=== PATIENT | female | born 1935 | race Two or more races ===

== ENCOUNTER 2016-11-10 12:39 | Inpatient (IN) | payer MEDICARE ==
[~2016-11-10] VITALS: Ht 144.8 cm; Wt 42.6 kg
[2016-11-10 16:00] VITALS: BP 138/70
[2016-11-10] MEDS ORDERED: CALC500T52 PO (16:11)
[2016-11-10] MEDS ORDERED: VENL37.55 PO (16:11)
[2016-11-10] MEDS ORDERED: ALPR0.25 PO (16:11)
[2016-11-10] MEDS ORDERED: CARB-92 PO (16:11)
[2016-11-10] MEDS ORDERED: ERGO50003 PO (16:11)
[2016-11-10] MEDS ORDERED: MEMA10TA PO (16:11)
[2016-11-10] MEDS ORDERED: QUET25TA PO (16:11)
[2016-11-10] MEDS ORDERED: IBUP-1619 PO (16:11)
[2016-11-10] MEDS ORDERED: TEMA15CA PO (16:11)
--- NOTE | 2016-11-10 16:15 | NUR ---
MS RN NOTES RECEIVED REPORT FROM NARGIS FROM [facility]. PATIENT ARRIVED IN STABLE CONDITION. PATIENT IS A/OX1. PATIENT NO S/S OF DISTRESS NOTED. IV IS PATENT AND INTACT 20G ON R AC. PATIENT ARRIVED TO UNIT FOR ASPIRATION PNEUMONIA. MD AWARE. MEDS HAVE BEEN RECONCILED. WILL CONTINUE TO MONITOR PATIENT THROUGHOUT SHIFT.
[2016-11-10] MEDS ORDERED: ALPRAZOLAM 0.25 MG TABLET PO PRN (17:00)
[2016-11-10] MEDS ORDERED: ENOXAPARIN SODIUM 40 MG/0.4 ML DISP.SYRIN SQ SCH (17:00)
[2016-11-10] MEDS ORDERED: Z GUARD REMEDY 2 OZ OINT TP PRN (17:00)
[2016-11-10] MEDS ORDERED: ONDANSETRON HCL/PF 4 MG/2 ML VIAL IVP PRN (17:00)
[2016-11-10] MEDS ORDERED: IV SET PRIMARY PUMP SET 1 EA INFUS.SET MC ONE (17:30)
[2016-11-10] MEDS ORDERED: SECONDARY IV SET 1 EA INFUS.SET MC ONE ×2 (17:30→20:26)
[2016-11-10] MEDS: IV NS 0.9% 1,000 ML IV PRN (17:43)
[2016-11-10] MEDS: CALCIUM CARBONATE (1250) 500 MG TABLET PO SCH (17:44)
[2016-11-10] MEDS: CARBIDOPA/LEVODOPA 10/100 MG 1 UDTAB PO SCH (17:44)
[2016-11-10] MEDS: QUETIAPINE FUMARATE 25 MG TABLET PO SCH (17:44)
--- NOTE | 2016-11-10 17:45 | NUR ---
MS RN NOTES CALLED PHARMACY TO ASK FOR ROCEPHIN. ROCEPHIN WAS NOT AVAILABLE IN MED ROOM.
--- NOTE | 2016-11-10 19:15 | NUR ---
MS RN NOTES CALLED PHARMACY TO ASK FOR ROCEPHIN AGAIN. PHARMACY STATED IT WILL BE SENT UP.
[2016-11-10 20:00] VITALS: BP 120/68
[2016-11-10] MEDS ORDERED: FEE PK DOSING 1 MIN EA MC ONE (20:23)
[2016-11-10] MEDS: CEFTRIAXONE 1 G in IV D5W 50 ML IV SCH (20:32)
[2016-11-10] MEDS: IBUPROFEN 200 MG TABLET PO SCH (21:11)
[2016-11-10] MEDS: ENOXAPARIN SODIUM 30 MG/0.3 ML DISP.SYRIN SQ SCH (21:14)
[2016-11-10] MEDS: TEMAZEPAM 15 MG CAPSULE PO SCH (21:14)
[2016-11-10] MEDS ORDERED: VANCOMYCIN 0.75 GM in IV D5W 250 ML IV SCH (22:00)
[2016-11-10] MEDS: VENLAFAXINE XR 37.5 MG CAP.SR.24H PO SCH (22:10)
[2016-11-11] VITALS: BP 105/50
[2016-11-11 04:26] VITALS: BP 110/57
--- NOTE | 2016-11-11 06:26 | NUR ---
MS RN CLOSING NOTES PATIENT IN BED. AWAKE. PATIENT IS A/OX1. CONFUSED. NO SOB. RESPIRATION EVEN AND UNLABORED. NO ACUTE DISTRESS NOTED. IV IS PATENT AND INTACT 22G ON R AC . NO COMPLAIN OF PAIN AT THIS TIME. KEPT CLEAN AND DRY AT ALL TIMES. BED IN LOW AND LOCKED POSITION. SIDERAILS UPX2. CALL LIGHT WITHIN REACH. WILL ENDORSE TO NEXT SHIFT NURSE FOR PADDY.
[2016-11-11 07:25] LABS: BASOPHILS % (AUTO) 0.4 % (0.0-2.0); EOSINOPHILS # (AUTO) 0.1 /CMM (0.0-0.7); EOSINOPHILS % (AUTO) 1.5 % (0.0-6.0); HEMATOCRIT 30 % (33-45); HEMOGLOBIN 10.1 g/dL (11.5-14.8); LYMPHOCYTES # (AUTO) 1.7 /CMM (0.8-4.8); LYMPHOCYTES % (AUTO) 19.5 % (20.0-44.0); MEAN CORPUSCULAR HEMOGLOBIN 29 PG (26.0-33.0); MEAN CORPUSCULAR HGB CONC 34 g/dl (31.0-36.0); MEAN CORPUSCULAR VOLUME 88 fL (82-100); MONOCYTES # (AUTO) 0.4 /CMM (0.1-1.30); MONOCYTES % (AUTO) 4.2 % (2.0-12.0); NEUTROPHILS # (AUTO) 6.6 /CMM (1.8-8.9); NEUTROPHILS % (AUTO) 74.4 % (43.0-81.0); PLATELET COUNT (AUTO) 300 /CMM (150-450); RDW COEFFICIENT OF VARIATION 15.4 (11.5-15.0); RED BLOOD CELL COUNT(AUTO) 3.44 MIL/uL (4.0-5.2); WHITE BLOOD COUNT (AUTO) 8.9 K/uL (4.3-11.0)
[2016-11-11 08:00] VITALS: BP 110/68
--- NOTE | 2016-11-11 08:00 | NUR ---
RN OPENING NOTES PATIENT RESTING IN BED, AWAKE. PATIENT CONFUSED, ORIENTED TO NAME AND PLACE ONLY. PATIENT SOFT RESTRAINT WAS NOT USED BECAUSE PATIENT WAS COOPERATIVE AND CALM. RESPIRATIONS EVEN AND UNLABORED. NO ACUTE DISTRESS NOTED. IV SITE PATENT AND INTACT. NO COMPLAINS OF PAIN. BED IN LOWEST POSITION, SEMIFOWLERS. CALL LIGHT WITHIN REACH. WILL CONTINUE TO MONITOR.
[2016-11-11 08:05] LABS: ALANINE AMINOTRANSFERASE 15 U/L (12-78); ALBUMIN 2.3 g/dL (3.4-5.0); ALKALINE PHOSPHATASE 69 U/L (46-116); ASPARTATE AMINOTRANSFERASE 23 U/L (15-37); CALCIUM, SERUM 8.3 mg/dL (8.5-10.1); CARBON DIOXIDE 28 mmol/L (21-32); CHLORIDE 108 mmol/L (98-107); CREATININE 0.6 mg/dL (0.6-1.3); GLUCOSE 83 mg/dL (74-106); MAGNESIUM 1.7 mg/dL (1.8-2.4); PHOSPHORUS 2.8 mg/dL (2.5-4.9); POTASSIUM 3.7 mmol/L (3.5-5.1); SODIUM SERUM 142 mmol/L (136-145); TOTAL PROTEIN, SERUM 6.7 g/dL (6.4-8.2); UREA NITROGEN, BLOOD 8 mg/dL (7-18)
[2016-11-11 08:06] LABS: CHOLESTEROL 168 mg/dL (<200); HDL CHOLESTEROL 37 mg/dL (40-60); LDL 108 mg/dL (0-99); THYROID STIMULATING HORMONE 2.393 uIU/mL (0.358-3.74); TRIGLYCERIDES 73 mg/dL (30-150)
[2016-11-11] MEDS: QUETIAPINE FUMARATE 25 MG TABLET PO SCH ×2 (08:36→17:15)
[2016-11-11] MEDS: CALCIUM CARBONATE (1250) 500 MG TABLET PO SCH ×2 (08:37→17:15)
[2016-11-11] MEDS: CARBIDOPA/LEVODOPA 10/100 MG 1 UDTAB PO SCH ×3 (08:37→17:15)
[2016-11-11] MEDS: PANTOPRAZOLE 40 MG TABLET.DR PO SCH (08:38)
[2016-11-11] MEDS: MEMANTINE HCL 5 MG TABLET PO SCH (08:39)
[2016-11-11] MEDS: IBUPROFEN 200 MG TABLET PO SCH ×2 (09:41→21:01)
[2016-11-11 10:30] LABS: BILIRUBIN,TOTAL 0.3 mg/dL (0.2-1.0)
[2016-11-11] MEDS ORDERED: SECONDARY IV SET 1 EA INFUS.SET MC ONE ×2 (14:00→17:10)
[2016-11-11] MEDS: IV NS 0.9% 1,000 ML IV PRN (14:09)
[2016-11-11] MEDS: Magnesium 1GM/D5W 100ML PREMIX 100 ML IV SCH ×2 (14:10→16:07)
[2016-11-11] MEDS ORDERED: IV SET PRIMARY PUMP SET 1 EA INFUS.SET MC ONE (14:13)
--- NOTE | 2016-11-11 15:16 | NUR ---
PT REFUSED CT SCAN & CXR, RN IS AWARE.
[2016-11-11 16:00] VITALS: BP 97/47
--- NOTE | 2016-11-11 17:00 | NUR ---
PATIENT WENT TO CT SCAN, PATIENT WAS COOPERATIVE.
--- NOTE | 2016-11-11 17:06 | NUR ---
PATIENT CAME BACK FROM CT SCAN, TOLERATED WELL.
[2016-11-11] MEDS: VANCOMYCIN 0.75 GM in IV D5W 250 ML IV SCH (17:13)
[2016-11-11] MEDS: CEFTRIAXONE 1 G in IV D5W 50 ML IV SCH (18:19)
--- NOTE | 2016-11-11 19:00 | NUR ---
RN CLOSING NOTES PATIENT ON BED RESTING, COOPERATIVE AND CALM. NO ACUTE DISTRESS NOTED. ALL NEEDS ATTENDED AND PROVIDED. BED IN LOWEST POSITION. CALL LIGHT WITH IN REACH. ENDORSED TO COMPLIANCE ASSISTANT RN FOR CONTINUITY OF CARE.
[2016-11-11 20:00] VITALS: BP 101/48
--- NOTE | 2016-11-11 20:10 | NUR ---
RN OPENING NOTES PATIENT RESTING IN BED, AWAKE. RESPIRATION EVEN AND UNLABORED. NO SOB. NO COMPLAIN OF PAIN/DISCOMFORT AT THIS TIME. NO ACUTE DISTRESS NOTED. IV SITE PATENT AND INTACT. BED IN LOW AND LOCKED POSITION. SIDERAILS UPX2. CALL LIGHT WITHIN REACH. WILL CONTINUE TO MONITOR FOR SAFETY.
[2016-11-11 20:13] VITALS: BP 101/48
[2016-11-11] MEDS: ENOXAPARIN SODIUM 30 MG/0.3 ML DISP.SYRIN SQ SCH (21:01)
[2016-11-11] MEDS: VENLAFAXINE XR 37.5 MG CAP.SR.24H PO SCH (21:01)
[2016-11-11] MEDS: TEMAZEPAM 15 MG CAPSULE PO SCH (21:01)
[2016-11-12] MEDS: IV NS 0.9% 1,000 ML IV PRN (05:53)
--- NOTE | 2016-11-12 07:30 | NUR ---
MS RN OPENING NOTES RECEIVED PT. FROM NIGHTSHIFT NURSE IN STABLE CONDITION. PT. IS A/O X1 AND CONFUSED. NO SOB OR SIGNS OF DISTRESS NOTED. BREATHING IS EVEN AND UNLABORED. IV PRESENT ON RIGHT AC 22G PATENT AND INTACT INFUSING NS @75ML/HR. PT. TOLERATING INFUSION WELL. NO REDNESS OR SIGNS OF INFILTRATION NOTED. BED IN LOW LOCKED POSITION, SIDE RAILS UP X3, CALL LIGHT WITHIN REACH. BED ALARM ON. WILL CONTINUE TO MONITOR.
[2016-11-12 08:00] VITALS: BP_SYST 127; BP_SYST 150; BP_DIAS 72; BP_DIAS 80
[2016-11-12] MEDS: CARBIDOPA/LEVODOPA 10/100 MG 1 UDTAB PO SCH ×3 (08:23→17:54)
[2016-11-12] MEDS: MEMANTINE HCL 5 MG TABLET PO SCH (08:23)
[2016-11-12] MEDS: QUETIAPINE FUMARATE 25 MG TABLET PO SCH ×2 (08:24→17:54)
[2016-11-12] MEDS: IBUPROFEN 200 MG TABLET PO SCH ×2 (08:24→21:00)
[2016-11-12] MEDS: CALCIUM CARBONATE (1250) 500 MG TABLET PO SCH ×2 (08:24→17:54)
[2016-11-12] MEDS: PANTOPRAZOLE 40 MG TABLET.DR PO SCH (08:24)
[2016-11-12 09:07] LABS: BASOPHILS % (AUTO) 0.3 % (0.0-2.0); EOSINOPHILS # (AUTO) 0.3 /CMM (0.0-0.7); EOSINOPHILS % (AUTO) 3.3 % (0.0-6.0); HEMATOCRIT 32 % (33-45); HEMOGLOBIN 10.5 g/dL (11.5-14.8); LYMPHOCYTES # (AUTO) 1.9 /CMM (0.8-4.8); LYMPHOCYTES % (AUTO) 19.6 % (20.0-44.0); MEAN CORPUSCULAR HEMOGLOBIN 29 PG (26.0-33.0); MEAN CORPUSCULAR HGB CONC 33 g/dl (31.0-36.0); MEAN CORPUSCULAR VOLUME 88 fL (82-100); MONOCYTES # (AUTO) 0.4 /CMM (0.1-1.30); MONOCYTES % (AUTO) 4.2 % (2.0-12.0); NEUTROPHILS % (AUTO) 72.6 % (43.0-81.0); PLATELET COUNT (AUTO) 329 /CMM (150-450); RDW COEFFICIENT OF VARIATION 15.8 (11.5-15.0); RED BLOOD CELL COUNT(AUTO) 3.64 MIL/uL (4.0-5.2); WHITE BLOOD COUNT (AUTO) 9.6 K/uL (4.3-11.0)
[2016-11-12 09:21] LABS: CALCIUM, SERUM 8.2 mg/dL (8.5-10.1); CARBON DIOXIDE 25 mmol/L (21-32); CHLORIDE 105 mmol/L (98-107); CREATININE 0.7 mg/dL (0.6-1.3); GLUCOSE 132 mg/dL (74-106); PHOSPHORUS 2.5 mg/dL (2.5-4.9); POTASSIUM 3.9 mmol/L (3.5-5.1); SODIUM SERUM 138 mmol/L (136-145); UREA NITROGEN, BLOOD 12 mg/dL (7-18)
[2016-11-12] MEDS: VANCOMYCIN 0.75 GM in IV D5W 250 ML IV SCH (10:21)
[2016-11-12 16:00] VITALS: BP 133/68
[2016-11-12] MEDS ORDERED: SECONDARY IV SET 1 EA INFUS.SET MC ONE (16:50)
[2016-11-12] MEDS ORDERED: ERGOCALCIFEROL (VITAMIN D 2) 50,000 UNIT CAPSULE PO SCH (17:00)
[2016-11-12] MEDS: LACTOBACILLUS RHAMNOSUS GG 1 EACH CAP.SPRINK PO SCH (17:54)
[2016-11-12] MEDS: CEFTRIAXONE 1 G in IV D5W 50 ML IV SCH (17:58)
--- NOTE | 2016-11-12 18:40 | NUR ---
MS RN CLOSING NOTES PT. IN STABLE CONDITION. ALL NEEDS MET DURING SHIFT AND ORDERS CARRIED OUT ACCORDINGLY. NO ACUTE CHANGES DURING SHIFT. IV ON LEFT FOREARM 22G PATENT AND INTACT. NO REDNESS OR INFILTRATION NOTED. ALL SAFTEY MEASURES IN PLACE. BED REMAINS IN LOWEST POSITION, SIDE RAILS UP X3, CALL LIGHT WITHIN REACH. WILL ENDORSE TO NIGHTSHIFT NURSE FOR PADDY
[2016-11-12 20:00] VITALS: BP 128/59
[2016-11-12] MEDS: TEMAZEPAM 15 MG CAPSULE PO SCH (21:00)
[2016-11-12] MEDS: VENLAFAXINE XR 37.5 MG CAP.SR.24H PO SCH (21:00)
[2016-11-12] MEDS: ENOXAPARIN SODIUM 30 MG/0.3 ML DISP.SYRIN SQ SCH (21:00)
[2016-11-12] MEDS: VANCOMYCIN 500 MG in IV D5W 100 ML IV SCH (22:24)
[2016-11-13] MEDS ORDERED: IV NS 0.9% 1,000 ML ONE (01:01)
[2016-11-13 07:30] LABS: BASOPHILS % (AUTO) 0.3 % (0.0-2.0); EOSINOPHILS # (AUTO) 0.4 /CMM (0.0-0.7); HEMATOCRIT 32 % (33-45); HEMOGLOBIN 10.5 g/dL (11.5-14.8); LYMPHOCYTES % (AUTO) 21.4 % (20.0-44.0); MEAN CORPUSCULAR HEMOGLOBIN 29 PG (26.0-33.0); MEAN CORPUSCULAR HGB CONC 33 g/dl (31.0-36.0); MEAN CORPUSCULAR VOLUME 88 fL (82-100); MONOCYTES # (AUTO) 0.5 /CMM (0.1-1.30); MONOCYTES % (AUTO) 5.1 % (2.0-12.0); NEUTROPHILS # (AUTO) 6.5 /CMM (1.8-8.9); NEUTROPHILS % (AUTO) 69.2 % (43.0-81.0); PLATELET COUNT (AUTO) 300 /CMM (150-450); RDW COEFFICIENT OF VARIATION 15.5 (11.5-15.0); RED BLOOD CELL COUNT(AUTO) 3.59 MIL/uL (4.0-5.2); WHITE BLOOD COUNT (AUTO) 9.4 K/uL (4.3-11.0)
--- NOTE | 2016-11-13 07:37 | NUR ---
RN OPEN NOTES RECEIVED REPORT FROM X RAY INSPECTOR NURSE. PATIENT IS IN BED, ALERT AND ORIENTED TO NAME ONLY. NO SIGNS AND SYMPTOMS OF DISTRESS. DENIED PAIN. POSSIBLE DCs TODAY OR TOMORROW, WILL FOLLOW UP WITH CASE MANAGEMENT. BED IN LOW POSITION, LOCKED AND TWO SIDE RAILS ARE UP. WILL CONTINUE TO MONITOR AND ASSESS PATIENT THROUGH OUT MY SHIFT.
[2016-11-13 08:00] VITALS: BP 128/61
[2016-11-13 08:05] LABS: CALCIUM, SERUM 8.4 mg/dL (8.5-10.1); CARBON DIOXIDE 27 mmol/L (21-32); CHLORIDE 105 mmol/L (98-107); CREATININE 0.7 mg/dL (0.6-1.3); GLUCOSE 124 mg/dL (74-106); MAGNESIUM 1.8 mg/dL (1.8-2.4); PHOSPHORUS 2.4 mg/dL (2.5-4.9); POTASSIUM 3.9 mmol/L (3.5-5.1); SODIUM SERUM 140 mmol/L (136-145); UREA NITROGEN, BLOOD 10 mg/dL (7-18)
[2016-11-13] MEDS: LACTOBACILLUS RHAMNOSUS GG 1 EACH CAP.SPRINK PO SCH (08:27)
[2016-11-13] MEDS: CALCIUM CARBONATE (1250) 500 MG TABLET PO SCH (08:27)
[2016-11-13] MEDS: CARBIDOPA/LEVODOPA 10/100 MG 1 UDTAB PO SCH ×2 (08:27→12:29)
[2016-11-13] MEDS: IBUPROFEN 200 MG TABLET PO SCH (08:28)
[2016-11-13] MEDS: PANTOPRAZOLE 40 MG TABLET.DR PO SCH (08:28)
[2016-11-13] MEDS: QUETIAPINE FUMARATE 25 MG TABLET PO SCH (08:29)
[2016-11-13] MEDS: MEMANTINE HCL 5 MG TABLET PO SCH (08:29)
[2016-11-13] MEDS: VANCOMYCIN 500 MG in IV D5W 100 ML IV SCH (09:31)
[2016-11-13] MEDS ORDERED: K PHOS NEUTRAL 250 MG TABLET PO ONE (15:30)
--- NOTE | 2016-11-13 15:50 | NUR ---
STAVE LOG RIPSAW OPERATOR NOTES PATIENT DISCHARGE ORDERS RECEIVED AND CARRIED OUT. PATIENT IS STABLE AT TIME OF DISCHARGE. AWAKE, ALERT AND CONFUSED. PATIENT IV SITE REMOVED. ID BAND REMOVED. ESCORTED TO [facility]ED [facility] AND TWO city administrator. NO SIGNS AND SYMPTOMS OF DISTRESS AT TIME OF DISCHARGE. DENIED PAIN.
== END 2016-11-13 15:30 | DRG 177 ==
LOC: TELE 15:53 → MED 11-11 09:21
PROVIDERS: ADMIT Nurse Practitioner Acute Care; ATTEND Nurse Practitioner Acute Care
DX: J69.0 Pneumonitis due to inhalation of food and vomit (principal); G93.40 Encephalopathy, unspecified; F32.3 Major depressive disorder, single episode, severe with psychotic features; G91.2 (Idiopathic) normal pressure hydrocephalus; I12.9 Hypertensive chronic kidney disease with stage 1 through stage 4 chronic kidney disease, or unspecified chronic kidney disease; F03.90 Unspecified dementia, unspecified severity, without behavioral disturbance, psychotic disturbance, mood disturbance, and anxiety; N18.9 Chronic kidney disease, unspecified; D63.8 Anemia in other chronic diseases classified elsewhere; M81.0 Age-related osteoporosis without current pathological fracture; G20 Parkinson's disease
CPT/HCPCS: 36415; 70450-TC; 71010-TC; 80048-TC; 80053-TC; 80061-TC; 80202-TC; 83735-TC; 84100-TC; 84443-TC; 84484-TC; 85025-TC; 87081-TC; 93307-TC; J0696; J1650; J3370; J3475; J7030; J7060; Z7610

== ENCOUNTER 2017-05-19 02:18 | Inpatient (IN) | payer MEDICARE ==
[~2017-05-19] VITALS: Ht 165.1 cm; Wt 50.8 kg
[2017-05-19] VITALS (7 sets, daily range): BP systolic 92–150; BP diastolic 42–73
[~2017-05-19 02:18] MED LIST: ALPR0.25 PO; CALC500T52 PO; CARB-92 PO; ERGO500014 PO; IBUP-2269 PO; MEMA10TA PO; QUET25TA PO; TEMA15CA PO; VENL37.55 PO
--- NOTE | 2017-05-19 03:45 | NUR ---
RN NOTES RECEIVED PATIENT FROM [facility] AND RESPONSIVE. NO RESPIRATORY DISTRESS OR SHORTNESS OF BREATH. BREATHING EVEN AND UNLABOR. ALERT WITH CONFUSION. VERBALLY ABLE TO COMMUNICATE NEEDS. NO COMPLAINT OF PAIN OR DISCOMFORT. ON O2 AT 2LPM VIA NASAL CANNULA, TOLERATING WELL. NOTED WITH MODERATE AMOUNT OF STOOL ON THE DIAPER. VITAL SIGNS WNL. WILL CONTINUE TO MONITOR.
[2017-05-19] MEDS ORDERED: ZOLPIDEM TARTRATE 5 MG TABLET PO PRN (04:00)
[2017-05-19] MEDS ORDERED: MAGNESIUM HYDROXIDE 30 ML UDC PO PRN (04:00)
[2017-05-19] MEDS ORDERED: VANCOMYCIN 1 GM in IV D5W 250 ML IV SCH (04:00)
[2017-05-19] MEDS ORDERED: ENOXAPARIN SODIUM 40 MG/0.4 ML DISP.SYRIN SQ SCH (04:00)
[2017-05-19] MEDS ORDERED: ACETAMINOPHEN 325 MG TABLET PO PRN (04:00)
[2017-05-19] MEDS ORDERED: ONDANSETRON HCL/PF 4 MG/2 ML VIAL IVP PRN (04:00)
[2017-05-19] MEDS ORDERED: Z GUARD REMEDY 2 OZ OINT TP PRN (04:00)
[2017-05-19] MEDS ORDERED: HYDROCODONE/APAP 5/325MG 1 EACH TABLET PO PRN (04:00)
[2017-05-19] MEDS ORDERED: MAG HYDROX/AL HYDROX/SIMETH 30 ML UDC PO PRN (04:00)
[2017-05-19] MEDS ORDERED: ENOXAPARIN SODIUM 40 MG/0.4 ML DISP.SYRIN SQ ONE (04:22)
[2017-05-19] MEDS ORDERED: VANCOMYCIN 1 GM VIAL ONE ×2 (04:22→23:04)
[2017-05-19] MEDS ORDERED: PIPERACILLIN /TAZOBACTAM 2.25 G VIAL IV ONE (04:22)
[2017-05-19] MEDS ORDERED: PIPERACILLIN /TAZOBACTAM 4.5 G in IV D5W 50 ML IV SCH (05:00)
[2017-05-19 05:21] LABS: EOSINOPHILS # (AUTO) 0.2 /CMM (0.0-0.7); EOSINOPHILS % (AUTO) 0.6 % (0.0-6.0); HEMATOCRIT 30 % (33-45); HEMOGLOBIN 9.9 g/dL (11.5-14.8); LYMPHOCYTES # (AUTO) 3.1 /CMM (0.8-4.8); LYMPHOCYTES % (AUTO) 11.8 % (20.0-44.0); MEAN CORPUSCULAR HEMOGLOBIN 30 PG (26.0-33.0); MEAN CORPUSCULAR HGB CONC 33 g/dl (31.0-36.0); MEAN CORPUSCULAR VOLUME 93 fL (82-100); MONOCYTES # (AUTO) 0.5 /CMM (0.1-1.30); MONOCYTES % (AUTO) 1.9 % (2.0-12.0); NEUTROPHILS # (AUTO) 22.8 /CMM (1.8-8.9); NEUTROPHILS % (AUTO) 85.7 % (43.0-81.0); PLATELET COUNT (AUTO) 246 /CMM (150-450); RDW COEFFICIENT OF VARIATION 15.2 (11.5-15.0); RED BLOOD CELL COUNT(AUTO) 3.24 MIL/uL (4.0-5.2); WHITE BLOOD COUNT (AUTO) 26.7 K/uL (4.3-11.0)
[2017-05-19 05:38] LABS: ALANINE AMINOTRANSFERASE 35 U/L (12-78); ALBUMIN 2.4 g/dL (3.4-5.0); ALKALINE PHOSPHATASE 114 U/L (46-116); ASPARTATE AMINOTRANSFERASE 31 U/L (15-37); B-TYPE NATRIURETIC PEPTIDE 1432 PG/ML (0-125); BILIRUBIN,TOTAL 0.3 mg/dL (0.2-1.0); CARBON DIOXIDE 26 mmol/L (21-32); CHLORIDE 106 mmol/L (98-107); CREATININE 0.8 mg/dL (0.6-1.3); GLUCOSE 107 mg/dL (74-106); PHOSPHORUS 3.4 mg/dL (2.5-4.9); POTASSIUM 3.4 mmol/L (3.5-5.1); SODIUM SERUM 142 mmol/L (136-145); UREA NITROGEN, BLOOD 12 mg/dL (7-18)
[2017-05-19] MEDS: IV NS 0.9% 1,000 ML IV PRN (05:50)
[2017-05-19 06:10] LABS: CHOLESTEROL 133 mg/dL (<200); HDL CHOLESTEROL 38 mg/dL (40-60); LDL 73 mg/dL (0-99); THYROID STIMULATING HORMONE 4.614 uIU/mL (0.358-3.74); TRIGLYCERIDES 56 mg/dL (30-150)
[2017-05-19 06:16] LABS: TROPONIN I 0.044 ng/mL (0.00-0.056)
[2017-05-19 06:28] LABS: BAND % (MANUAL) 4 % (0.0-5.0); LYMPHOCYTES % (MANUAL) 14 % (16-48); MONOCYTES % (MANUAL) 9 % (0-11.0); NEUTROPHILS % (MANUAL) 73 (42-76)
--- NOTE | 2017-05-19 07:48 | NUR ---
TELE/RN OPENING NOTE PATIENT IN BED IN STABLE CONDITION. A/O X 1, WITH EPISODES OF CONFUSION AND FORGETFULNESS. NO SIGNS OF ACUTE DISTRESS. NO COMPLAIN OF PAIN OR DISCOMFORT. ON TELE MONITOR WITH SINUS RHYTHM OF 74. ALL NEEDS ATTENDED TO. CALL LIGHT WITHIN REACH. WILL CONTINUE TO MONITOR TO ENSURE SAFETY.
[2017-05-19] MEDS: MEMANTINE HCL 5 MG TABLET PO SCH ×2 (09:06→16:35)
[2017-05-19] MEDS: CARBIDOPA/LEVODOPA 10/100 MG 1 UDTAB PO SCH ×3 (09:06→16:35)
[2017-05-19] MEDS ORDERED: POTASSIUM CHLORIDE 20 MEQ TAB.PRT.SR PO ONE (10:00)
--- NOTE | 2017-05-19 11:00 | NUR ---
tele lugger: notes received pt in bed awake, alert to name only with confusion and disorientation to time, place, and situation. reality orientation provided prn. bed alarm on. instructed to call for assistance. able to make simple needs known. denies sob or any discomfort. will continue to monitor.
[2017-05-19] MEDS ORDERED: FEE PK DOSING 1 MIN EA MC ONE (11:14)
--- NOTE | 2017-05-19 12:30 | NUR ---
tele ostrich farmer: notes found pt disrobing herself and removing her tele monitor. placed back on tele and gowned up pt. reality orientation provided prn. will continue to monitor.
--- NOTE | 2017-05-19 16:30 | NUR ---
tele director family: notes pt still keeps disrobing and removing her tele monitor. also pt pulled her iv out. no bleeding noted. pt refused iv insertion when explained the importance needing the antibiotic tx and iv fluids. reality orientation provided prn. monitored closely and will need a sitter for tonight. cn and tool and die supervisor aware. will continue to monitor.
--- NOTE | 2017-05-19 17:10 | NUR ---
tele internal affairs commander: notes pt keeps removing tele and explained why we needed to have on, but pt still refuses. pt remains confused and disoriented, but able to make simple needs known. reality orientation provided prn. will continue to monitor.
--- NOTE | 2017-05-19 17:30 | NUR ---
tele granite worker: notes attempted to insert iv, but unsuccessful. unable to give zosyn at this time. will attempt to insert iv when time permits. will continue to monitor.
--- NOTE | 2017-05-19 18:15 | NUR ---
tele hat block maker: notes attempted to insert iv, but unsuccessful. unable to give zosyn at this time. will continue to monitor.
--- NOTE | 2017-05-19 18:35 | NUR ---
tele fish hatchery inspector: notes attempted iv insertion once more and successful with 22 gauge to left forearm. iv fluid reconnected. reality orientation provided prn. monitored closely. will continue to monitor.
[2017-05-19] MEDS: PIPERACILLIN /TAZOBACTAM 3.375 G in IV D5W 50 ML IV SCH (18:38)
--- NOTE | 2017-05-19 20:52 | NUR ---
RN NOTES RECEIVE REPORT FROM NIGHT RN FOR CONTINUITY OF CARE. PT NOW IN BED RESTING COMFORTABLY. A/O X 3, PT IN STABLE CONDITION, NO S/S OF DISTRESS. SAFETY MEASURES ARE IN PLACE, CALL LIGHT IS IN REACH. WILL CONTINUE TO MONITOR. Addendum: 05/19/17 at 2058 by TAL YORK RN CORRECTION PT IS A/O X 1 ONLY WITH PERIODS OF CONFUSION
[2017-05-19] MEDS: VANCOMYCIN 1 GM in IV D5W 250 ML IV SCH (23:18)
[2017-05-20] VITALS: BP 111/68
[2017-05-20] MEDS: PIPERACILLIN /TAZOBACTAM 3.375 G in IV D5W 50 ML IV SCH ×5 (00:43→23:46)
[2017-05-20] MEDS: IV NS 0.9% 1,000 ML IV PRN ×2 (03:21→18:26)
[2017-05-20 04:00] VITALS: BP 115/70
--- NOTE | 2017-05-20 06:21 | NUR ---
ROLLER PICKER CLOSING NOTES ASLEEP IN BED, HOB ELEVATED RESPIRATIONS EVEN AND UNLABORED. TOLERATING ROOM AIR 02 SAT 98% NOT IN S/S DISTRESS. KEPT CLEAN AND DRY AND COMFORTABLE, ALL NURSING CARE RENDERED. NEEDS ATTENDED AND ANTICIPATED, FREQUENT VISUAL CHECK DONE FOR SAFETY EVERY 2 HOURS. ON LOW BED AT ALL TIMES TO ENSURE SAFETY. SAFE HAZARD FREE ENVIRONMENT PROVIDED. ASSIST REPOSITION Q2H, CALL LIGHT WITHIN EASY TO REACH. WILL ENDORSE NEXT SHIFT CONTINUITY OF CARE. ATTACH TO TELE MONITOR. SR, 71'S
[2017-05-20 06:34] LABS: BASOPHILS % (AUTO) 0.2 % (0.0-2.0); EOSINOPHILS # (AUTO) 0.4 /CMM (0.0-0.7); EOSINOPHILS % (AUTO) 2.7 % (0.0-6.0); HEMATOCRIT 26 % (33-45); HEMOGLOBIN 8.9 g/dL (11.5-14.8); LYMPHOCYTES # (AUTO) 1.9 /CMM (0.8-4.8); LYMPHOCYTES % (AUTO) 14.1 % (20.0-44.0); MEAN CORPUSCULAR HEMOGLOBIN 31 PG (26.0-33.0); MEAN CORPUSCULAR HGB CONC 34 g/dl (31.0-36.0); MEAN CORPUSCULAR VOLUME 91 fL (82-100); MONOCYTES # (AUTO) 0.8 /CMM (0.1-1.30); MONOCYTES % (AUTO) 6.4 % (2.0-12.0); NEUTROPHILS # (AUTO) 10.1 /CMM (1.8-8.9); NEUTROPHILS % (AUTO) 76.6 % (43.0-81.0); PLATELET COUNT (AUTO) 318 /CMM (150-450); RDW COEFFICIENT OF VARIATION 15.1 (11.5-15.0); RED BLOOD CELL COUNT(AUTO) 2.89 MIL/uL (4.0-5.2); WHITE BLOOD COUNT (AUTO) 13.2 K/uL (4.3-11.0)
[2017-05-20 06:43] LABS: CALCIUM, SERUM 8.2 mg/dL (8.5-10.1); CARBON DIOXIDE 27 mmol/L (21-32); CHLORIDE 106 mmol/L (98-107); CREATININE 0.7 mg/dL (0.6-1.3); GLUCOSE 96 mg/dL (74-106); POTASSIUM 3.4 mmol/L (3.5-5.1); SODIUM SERUM 141 mmol/L (136-145); UREA NITROGEN, BLOOD 9 mg/dL (7-18)
--- NOTE | 2017-05-20 07:15 | NUR ---
RN NOTES: PATIENT RESTING IN BED. PATIENT AOX1, CONFUSED. NONLABORED BREATHING NOTED ON ROOM AIR. NO SIGNS OF DISTRESS NOTED. NO FACIAL GRIMACING NOTED. PATIENT ON TELE MONITORING WITH SR WITH PVC AT 78. IV SITE PATENT AND INTACT. BED IN LOWEST LOCKED POSITION. CALL LIGHT WITHIN REACH. SITTER AT BEDSIDE. WILL CONTINUE TO MONITOR.
[2017-05-20 08:00] VITALS: BP 119/52
[2017-05-20] MEDS: MEMANTINE HCL 5 MG TABLET PO SCH ×2 (08:46→17:11)
[2017-05-20] MEDS: CARBIDOPA/LEVODOPA 10/100 MG 1 UDTAB PO SCH ×3 (08:47→17:11)
[2017-05-20] MEDS: ENOXAPARIN SODIUM 40 MG/0.4 ML DISP.SYRIN SQ SCH (08:55)
[2017-05-20] MEDS ORDERED: POTASSIUM CHLORIDE 20 MEQ TAB.PRT.SR PO SCH (10:00)
[2017-05-20 16:00] VITALS: BP 137/93
[2017-05-20] MEDS: VANCOMYCIN 1 GM in IV D5W 250 ML IV SCH (16:59)
[2017-05-20] MEDS: LACTOBACILLUS RHAMNOSUS GG 1 EACH CAP.SPRINK PO SCH (17:10)
--- NOTE | 2017-05-20 18:47 | NUR ---
RN NOTES: PATIENT RESTING IN BED. PATIENT AOX1, CONFUSED. NONLABORED BREATHING NOTED ON ROOM AIR. NO SIGNS OF DISTRESS NOTED. NO FACIAL GRIMACING NOTED. IV SITE PATENT AND INTACT. BED IN LOWEST LOCKED POSITION. CALL LIGHT WITHIN REACH. SITTER AT BEDSIDE. DURING SHIFT, PATIENT TURNED AND REPOSITION EVERY TWO HOURS, SKIN KEPT CLEAN AND DRY. WILL ENDORSE TO NEXT SHIFT.
--- NOTE | 2017-05-20 18:47 | NUR ---
RN NOTES: PATIENT RESTING IN BED. PATIENT AOX1, CONFUSED. NONLABORED BREATHING NOTED ON ROOM AIR. NO SIGNS OF DISTRESS NOTED. NO FACIAL GRIMACING NOTED. IV SITE PATENT AND INTACT. BED IN LOWEST LOCKED POSITION. CALL LIGHT WITHIN REACH. SITTER AT BEDSIDE. DURING SHIFT, PATIENT TURNED AND REPOSITION EVERY TWO HOURS, SKIN KEPT CLEAN AND DRY. NO SIGNS OF DIFFICULTY SWALLOWING WHEN EATING DURING SHIFT. WILL ENDORSE TO NEXT SHIFT.
--- NOTE | 2017-05-20 19:00 | NUR ---
RN NOTES IN BED RESTING COMFORTABLY. A/O X 1 WITH PERIODS OF CONFUSION, PT IN STABLE CONDITION, NO S/S OF DISTRESS. SAFETY MEASURES ARE IN PLACE, CALL LIGHT IS IN REACH. WILL CONTINUE TO MONITOR.
[2017-05-20 20:00] VITALS: BP 122/58
--- NOTE | 2017-05-21 03:31 | NUR ---
PT WAS MOVED TO ROOM 311-2 NO INCIDENT HAPPENED
[2017-05-21] MEDS: PIPERACILLIN /TAZOBACTAM 3.375 G in IV D5W 50 ML IV SCH (05:00)
--- NOTE | 2017-05-21 06:13 | NUR ---
MS RN CLOSING NOTES HEAD OF BED ELEVATED. IN BED ASLEEP AND EASILY AWAKEN, RESPIRATIONS EVEN AND UNLABORED. TOLERATING ROOM AIR 98%. NOT IN S/S DISTRESS. STABLE CONDITION. KEPT CLEAN AND DRY AND COMFORTABLE, ALL NURSING CARE RENDERED. NEEDS ATTENDED AND ANTICIPATED, FREQUENT VISUAL CHECK DONE FOR SAFETY EVERY 2 HOURS. ASSIST REPOSITION Q2H, GOOD SKIN CARE PROVIDED. ON LOW BED AT ALL TIMES TO ENSURE SAFETY. SAFE HAZARD FREE ENVIRONMENT PROVIDED. CALL LIGHT WITHIN EASY TO REACH. WILL ENDORSE NEXT SHIFT CONTINUITY OF CARE.
[2017-05-21 06:28] LABS: EOSINOPHILS # (AUTO) 0.3 /CMM (0.0-0.7); HEMATOCRIT 28 % (33-45); HEMOGLOBIN 9.1 g/dL (11.5-14.8); LYMPHOCYTES # (AUTO) 1.9 /CMM (0.8-4.8); LYMPHOCYTES % (AUTO) 17.2 % (20.0-44.0); MEAN CORPUSCULAR HEMOGLOBIN 30 PG (26.0-33.0); MEAN CORPUSCULAR HGB CONC 33 g/dl (31.0-36.0); MEAN CORPUSCULAR VOLUME 91 fL (82-100); MONOCYTES # (AUTO) 0.7 /CMM (0.1-1.30); NEUTROPHILS # (AUTO) 8.1 /CMM (1.8-8.9); NEUTROPHILS % (AUTO) 73.8 % (43.0-81.0); PLATELET COUNT (AUTO) 411 /CMM (150-450); RDW COEFFICIENT OF VARIATION 15.5 (11.5-15.0); RED BLOOD CELL COUNT(AUTO) 3.02 MIL/uL (4.0-5.2); WHITE BLOOD COUNT (AUTO) 10.9 K/uL (4.3-11.0)
[2017-05-21 06:46] LABS: CALCIUM, SERUM 8.5 mg/dL (8.5-10.1); CARBON DIOXIDE 26 mmol/L (21-32); CHLORIDE 109 mmol/L (98-107); CREATININE 0.7 mg/dL (0.6-1.3); GLUCOSE 103 mg/dL (74-106); POTASSIUM 3.7 mmol/L (3.5-5.1); SODIUM SERUM 142 mmol/L (136-145); UREA NITROGEN, BLOOD 7 mg/dL (7-18)
--- NOTE | 2017-05-21 07:15 | NUR ---
RN NOTES PATIENT AOX1 CONFUSED. NO SIGNS OF DISTRESS. NO FACIAL GRIMACING NOTED. NONLABORED BREATHING NOTED ON ROOM AIR. BED IN LOWEST LOCKED POSITION. WILL CONTINUE TO MONITOR,. CALL LIGHT WITHIN REACH
[2017-05-21] MEDS: CARBIDOPA/LEVODOPA 10/100 MG 1 UDTAB PO SCH (09:07)
[2017-05-21] MEDS: LACTOBACILLUS RHAMNOSUS GG 1 EACH CAP.SPRINK PO SCH (09:07)
[2017-05-21] MEDS: MEMANTINE HCL 5 MG TABLET PO SCH (09:08)
[2017-05-21] MEDS: ENOXAPARIN SODIUM 40 MG/0.4 ML DISP.SYRIN SQ SCH (09:16)
[2017-05-21] MEDS ORDERED: LEVO500T75 PO (10:11)
[2017-05-21] MEDS: VANCOMYCIN 1 GM in IV D5W 250 ML IV SCH (12:14)
--- NOTE | 2017-05-21 12:16 | NUR ---
RN NOTES PATIENT REFUSING VANCO EARLIER, ATTMEPTED MULTIPLE TIMES,STATING"LEAVING ME ALONE" OFFERED MULTIPLE TIMES
--- NOTE | 2017-05-21 14:45 | NUR ---
RN NOTES: PATIENT DISCHARGED TO [facility], PATIENT STABLE. NONLABORED BREATHING NOTED ON ROOM AIR. VS WNL. IV LINE REMOVED, PATIENT REFUSED CARBIDOPA AND ZOSYN, BENEFITS AND RISKS EXPLAINED MULTIPLE TIMES. PATIENT STILL CONFUSED AND NEEDS REINFORCEMENT. PATIENT REFUSED SKIN PICTURES STATING "I JUST WANNA LEAVE" PATIENT REORIENTED CONSTANTLY, OFFERED FLUIDS AND TOILETING, KEPT CLEAN AND DRY, PATIENT REFUSING PNA VACCINE WELL. BELONGINGS GIVEN TO PARAMEDICS TO BE TAKEN TO FACILITY ALONG SIDE OF REPORT SHEET, MED LIST, EXISTCARE, FACESHEET, AND PRESCRIPTION OF ANTIBTIOTICS. PATIENT EDUCATED ON EXISTCARE, PATIENT NEEDS REINFORCMENT. PATIENT STABLE, LEFT WITH PARAMEDICS
== END 2017-05-21 14:43 | DRG 871 ==
LOC: TELE 02:18 → MED 05-20 09:59
DX: A41.9 Sepsis, unspecified organism (principal); J96.01 Acute respiratory failure with hypoxia; E43 Unspecified severe protein-calorie malnutrition; G91.9 Hydrocephalus, unspecified; I11.0 Hypertensive heart disease with heart failure; G92 Toxic encephalopathy; J15.9 Unspecified bacterial pneumonia; R13.10 Dysphagia, unspecified; G20 Parkinson's disease; I50.9 Heart failure, unspecified; I13.0 Hypertensive heart and chronic kidney disease with heart failure and stage 1 through stage 4 chronic kidney disease, or unspecified chronic kidney disease; D63.8 Anemia in other chronic diseases classified elsewhere; R65.20 Severe sepsis without septic shock; F02.80 Dementia in other diseases classified elsewhere, unspecified severity, without behavioral disturbance, psychotic disturbance, mood disturbance, and anxiety; E78.5 Hyperlipidemia, unspecified; E87.6 Hypokalemia; M81.0 Age-related osteoporosis without current pathological fracture; N18.9 Chronic kidney disease, unspecified; F41.9 Anxiety disorder, unspecified; F32.9 Major depressive disorder, single episode, unspecified; R53.81 Other malaise
CPT/HCPCS: 36415; 71010-TC; 80048-TC; 80053-TC; 80061-TC; 80202-TC; 83735-TC; 83880; 84100-TC; 84443-TC; 84484-TC; 85025-TC; 87081-TC; 92611-TC; 93307-TC; J1650; J2543; J3370; J7030; J7060; Z7610